=== PATIENT | female | born 1935 | race Caucasian/White ===

== ENCOUNTER 2019-11-01 09:48 | Emergency (ER) | payer OTHER ==
[~2019-11-01] VITALS: Ht 175.3 cm; Wt 57.2 kg
--- NOTE | 2019-11-01 10:00 | NUR ---
BIBRA88 HOME, C/O NAUSEA X 3 DAYS. ZOFRAN ODT GIVEN POLYSOMNOGRAPHY TECH W/ RELIEF. PATIENT A/OX4, BREATHING EVEN AND UNLABORED, NO SOB NOTED, NEEDS ATTENDED.
[2019-11-01] MEDS ORDERED: IV NS 0.9% 500 ML BAG IV ONE (10:30)
[2019-11-01] MEDS ORDERED: ONDANSETRON HCL/PF 4 MG/2 ML VIAL IVP ONE (10:30)
[2019-11-01] MEDS ORDERED: ONDANSETRON HCL/PF 4 MG/2 ML VIAL ONE (10:40)
[2019-11-01 10:49] LABS: BASOPHILS % (AUTO) 0.9 % (0.0-2.0); EOSINOPHILS % (AUTO) 4.4 % (0.0-6.0); HEMATOCRIT 39 % (33-45); HEMOGLOBIN 12.9 g/dL (11.5-14.8); LYMPHOCYTES # (AUTO) 1.2 /CMM (0.8-4.8); LYMPHOCYTES % (AUTO) 23.7 % (20.0-44.0); MEAN CORPUSCULAR HGB CONC 33 g/dl (31.0-36.0); MEAN CORPUSCULAR VOLUME 93 fL (82-100); MONOCYTES # (AUTO) 0.5 /CMM (0.1-1.30); MONOCYTES % (AUTO) 10.3 % (2.0-12.0); NEUTROPHILS # (AUTO) 3.2 /CMM (1.8-8.9); NEUTROPHILS % (AUTO) 60.7 % (43.0-81.0); PLATELET COUNT (AUTO) 179 /CMM (150-450); RED BLOOD CELL COUNT(AUTO) 4.24 MIL/uL (4.0-5.2); WHITE BLOOD COUNT (AUTO) 5.2 K/uL (4.3-11.0)
[2019-11-01 10:56] LABS: CALCIUM, SERUM 8.6 mg/dL (8.5-10.1); CARBON DIOXIDE 30 mmol/L (21-32); CHLORIDE 106 mmol/L (98-107); CREATININE 0.9 mg/dL (0.6-1.3); GLUCOSE 84 mg/dL (74-106); POTASSIUM 3.7 mmol/L (3.5-5.1); SODIUM SERUM 143 mmol/L (136-145); UREA NITROGEN, BLOOD 11 mg/dL (7-18)
[2019-11-01 11:01] LABS: ALANINE AMINOTRANSFERASE 22 U/L (12-78); ALBUMIN 3.6 g/dL (3.4-5.0); ALKALINE PHOSPHATASE 58 U/L (46-116); ASPARTATE AMINOTRANSFERASE 16 U/L (15-37); BILIRUBIN,DIRECT 0.1 mg/dL (0.0-0.2); BILIRUBIN,TOTAL 0.5 mg/dL (0.2-1.0); LIPASE 142 U/L (73-393); TOTAL PROTEIN, SERUM 6.5 g/dL (6.4-8.2)
[2019-11-01 11:38] LABS: APPEARANCE,URINE Clear (CLEAR); BILIRUBIN,URINE Negative (NEGATIVE); BLOOD, URINE Negative Ery/uL (NEGATIVE); COLOR,URINE Yellow (YELLOW); KETONES,URINE Negative (NEGATIVE); LEUKOCYTE ESTERASE ,URINE Negative (NEGATIVE); NITRITE, URINE Negative (NEGATIVE); PROTEIN,URINE Negative (NEGATIVE); UGLUCOSE Negative (NEGATIVE); UROBILINOGEN,URINE 0.2 EU/dL (0.2)
--- NOTE | 2019-11-01 12:18 | NUR ---
Patient a/ox4, breathing even and unlabored, no sob noted, needs attended, kept comfortable. IV removed. Catheter intact and site benign. Pressure and 4x4 applied to site. No bleeding noted.Patient discharged to home in stable condition. Written and verbal after care instructions given. Patient verbalizes understanding of instruction.
[2019-11-01 12:19] VITALS: BP 134/72
== END 2019-11-01 12:20 | disposition home or self-care (01) ==
LOC: ER 09:49
DX: R11.2 Nausea with vomiting, unspecified (principal); H93.13 Tinnitus, bilateral
CPT/HCPCS: 36415; 71045; 80048; 80076; 81001; 83690; 84484; 85025; 93005; 96374; 99285; J2405; J7040; 81000-TC

== ENCOUNTER 2020-04-07 00:30 | Emergency (ER) | payer OTHER ==
[~2020-04-07] VITALS: Ht 177.8 cm; Wt 59.0 kg
--- NOTE | 2020-04-07 00:49 | NUR ---
PATIENT CAME TO THE ER BED 10 FROM HOME BIBRA C/O NAUSEA AND VOMITING. PATIENT STATES THAT SHE FEELS DIZZY. PATIENT IS AAOX4. NO SOB .BREATHING EVENLY AND UNLABORED ON ROOM AIR. CONNECTED TO THE MONITOR.
[2020-04-07] MEDS ORDERED: PROCHLORPERAZINE EDISYLATE 10 MG/2 ML VIAL ONE (00:50)
[2020-04-07] MEDS ORDERED: diphenhydrAMINE HCL 50 MG/ML VIAL ONE (00:50)
--- NOTE | 2020-04-07 00:54 | NUR ---
BLOOD COLLECTED AND SENT TO THE LAB.
[2020-04-07] MEDS ORDERED: IV NS 0.9% 1,000 ML BAG IV ONE (01:00)
[2020-04-07] MEDS ORDERED: PROCHLORPERAZINE EDISYLATE 10 MG/2 ML VIAL IVP ONE (01:00)
[2020-04-07] MEDS ORDERED: diphenhydrAMINE HCL 50 MG/ML VIAL IV ONE (01:00)
[2020-04-07 01:15] LABS: BASOPHILS # (AUTO) 0.3 /CMM (0.0-0.2); BASOPHILS % (AUTO) 4.1 % (0.0-2.0); EOSINOPHILS % (AUTO) 5.7 % (0.0-6.0); HEMATOCRIT 40 % (33-45); HEMOGLOBIN 13.2 g/dL (11.5-14.8); LYMPHOCYTES % (AUTO) 16.2 % (20.0-44.0); MEAN CORPUSCULAR HGB CONC 33 g/dl (31.0-36.0); MEAN CORPUSCULAR VOLUME 90 fL (82-100); MONOCYTES # (AUTO) 0.4 /CMM (0.1-1.30); NEUTROPHILS # (AUTO) 4.2 /CMM (1.8-8.9); PLATELET COUNT (AUTO) 193 /CMM (150-450); RED BLOOD CELL COUNT(AUTO) 4.47 MIL/uL (4.0-5.2); WHITE BLOOD COUNT (AUTO) 6.3 K/uL (4.3-11.0)
[2020-04-07] MEDS ORDERED: METOCLOPRAMIDE HCL 10 MG/2 ML VIAL ONE (01:27)
[2020-04-07] MEDS ORDERED: METOCLOPRAMIDE HCL 10 MG/2 ML VIAL IV ONE (01:30)
[2020-04-07 01:43] LABS: CALCIUM, SERUM 9.4 mg/dL (8.5-10.1); CARBON DIOXIDE 29 mmol/L (21-32); CHLORIDE 101 mmol/L (98-107); CREATININE 1.1 mg/dL (0.6-1.3); GLUCOSE 113 mg/dL (74-106); POTASSIUM 3.6 mmol/L (3.5-5.1); SODIUM SERUM 141 mmol/L (136-145); UREA NITROGEN, BLOOD 22 mg/dL (7-18)
[2020-04-07 01:49] LABS: ALANINE AMINOTRANSFERASE 17 U/L (12-78); ALBUMIN 3.7 g/dL (3.4-5.0); ALKALINE PHOSPHATASE 80 U/L (46-116); ASPARTATE AMINOTRANSFERASE 18 U/L (15-37); BILIRUBIN,DIRECT 0.1 mg/dL (0.0-0.2); BILIRUBIN,TOTAL 0.2 mg/dL (0.2-1.0); LIPASE 185 U/L (73-393); TOTAL PROTEIN, SERUM 6.9 g/dL (6.4-8.2)
--- NOTE | 2020-04-07 01:53 | NUR ---
urine collected and sent to the lab.
[2020-04-07 02:19] LABS: BILIRUBIN,URINE Negative (NEGATIVE); COLOR,URINE YELLOW (YELLOW); LEUKOCYTE ESTERASE ,URINE Trace (NEGATIVE); NITRITE, URINE Negative (NEGATIVE); PROTEIN,URINE Negative (NEGATIVE); UGLUCOSE Negative (NEGATIVE); UROBILINOGEN,URINE 0.2 EU/dL (0.2)
[2020-04-07] MEDS ORDERED: MECLIZINE HCL 25 MG TABLET ONE (02:41)
[2020-04-07 02:54] LABS: BACTERIA,URINE None seen /HPF (None Seen); RBC,URINE 0-2 /HPF (0-2); SQUAMOUS EPITHELIAL CELL,UR Few /HPF (None Seen)
[2020-04-07] MEDS ORDERED: MECLIZINE HCL 25 MG TABLET PO ONE (03:00)
--- NOTE | 2020-04-07 03:29 | NUR ---
PATIENT AMBULATED TO THE RESTOOM WITH ASSISTANCE WITH A STEADY GAIT. PATIENT HAS GOOD LEAD SOFTWARE TESTER STRENGTH AND LEG STRENGTH.
--- NOTE | 2020-04-07 03:30 | NUR ---
PATIENT STATES, " I DON'T THINK I CAN WALK WITHOUT ANY ASSISTANCE, I NEED SOMEONE THERE TO HELP ME."
--- NOTE | 2020-04-07 03:37 | NUR ---
SPOKE WITH XAVIER FROM [facility], JASMIN LUCAS WILL CALL BACK
--- NOTE | 2020-04-07 03:56 | NUR ---
DR. JEREZ SPEAKING WITH DR. AGUILAR ([facility] )
--- NOTE | 2020-04-07 04:46 | NUR ---
TRANSFER INFO: PT WILL BE TRANSFERRED TO [facility] ER PER INSURANCE REQUEST ACCEPTING MD: DR. JAEGER NUMBER FOR REPORT: [phone] S TRANSPORT ETA [phone]
--- NOTE | 2020-04-07 05:19 | NUR ---
REPORT GIVEN TO REID NUNO FROM [facility].
--- NOTE | 2020-04-07 05:51 | NUR ---
patient ambulated to the restroom with a steady gait.
[2020-04-07 06:48] VITALS: BP 140/64
--- NOTE | 2020-04-07 06:52 | NUR ---
REPORT GIVEN TO TRANSPORT TEAM FOR [facility] AND TRANSFERRING RESPONSIBILTIES.
== END 2020-04-07 06:54 | disposition short-term general hospital (02) ==
LOC: ER 00:31
DX: H81.09 Meniere's disease, unspecified ear (principal); R11.2 Nausea with vomiting, unspecified; R26.2 Difficulty in walking, not elsewhere classified; Z20.822 Contact with and (suspected) exposure to COVID-19
CPT/HCPCS: 36415; 80048; 80076; 81001; 83690; 84484; 85025; 87086; 87426; 93005; 96361; 96374; 96375; 99285; C9803; J0780; J1200; J2765; J7030; J8597

== ENCOUNTER 2020-05-29 12:45 | Emergency (ER) | payer OTHER ==
[~2020-05-29] VITALS: Ht 175.3 cm; Wt 60.8 kg
--- NOTE | 2020-05-29 13:00 | NUR ---
FEELING UNSTEADY AND FEELS LIKE HEART IS RACING WHILE AT HOME X 45MINS. PATIENT A/OX4, BREATHING EVEN AND UNLABORED, NO SOB NOTED. NEEDS ATTENDED. PATIENT AMBULATORY WITH STEADY GAIT.
--- NOTE | 2020-05-29 13:14 | NUR ---
Blood specimen collected and taken it to the lab.
[2020-05-29 13:19] LABS: BASOPHILS # (AUTO) 0.1 /CMM (0.0-0.2); BASOPHILS % (AUTO) 1.9 % (0.0-2.0); EOSINOPHILS % (AUTO) 1.9 % (0.0-6.0); HEMATOCRIT 38 % (33-45); HEMOGLOBIN 12.4 g/dL (11.5-14.8); LYMPHOCYTES # (AUTO) 0.9 /CMM (0.8-4.8); MEAN CORPUSCULAR HGB CONC 32 g/dl (31.0-36.0); MEAN CORPUSCULAR VOLUME 91 fL (82-100); MONOCYTES # (AUTO) 0.5 /CMM (0.1-1.30); MONOCYTES % (AUTO) 7.2 % (2.0-12.0); NEUTROPHILS # (AUTO) 5.1 /CMM (1.8-8.9); PLATELET COUNT (AUTO) 185 /CMM (150-450); WHITE BLOOD COUNT (AUTO) 6.7 K/uL (4.3-11.0)
[2020-05-29 13:28] LABS: CALCIUM, SERUM 9.1 mg/dL (8.5-10.1); CARBON DIOXIDE 26 mmol/L (21-32); CHLORIDE 105 mmol/L (98-107); CREATININE 0.9 mg/dL (0.6-1.3); GLUCOSE 103 mg/dL (74-106); SODIUM SERUM 140 mmol/L (136-145); UREA NITROGEN, BLOOD 16 mg/dL (7-18)
[2020-05-29 13:42] LABS: ALANINE AMINOTRANSFERASE 16 U/L (12-78); ALBUMIN 3.3 g/dL (3.4-5.0); ALKALINE PHOSPHATASE 69 U/L (46-116); ASPARTATE AMINOTRANSFERASE 17 U/L (15-37); BILIRUBIN,DIRECT 0.1 mg/dL (0.0-0.2); BILIRUBIN,TOTAL 0.5 mg/dL (0.2-1.0); TOTAL PROTEIN, SERUM 6.5 g/dL (6.4-8.2)
--- NOTE | 2020-05-29 14:03 | NUR ---
PATIENT ACCEPTED AT [facility].
--- NOTE | 2020-05-29 14:06 | NUR ---
PATIENT WENT TO RESTROOM, DID NOT PROVIDE A URINE.
--- NOTE | 2020-05-29 15:48 | NUR ---
[facility] CALLED BACK WITH TRANSFER INFO. PATIENT HAS BEEN ACCEPTED TO [facility]. NUMBER FOR REPORT [phone]. DR. Kevin HARE IS THE ACCEPTING. [facility] WITH [facility] ETA [phone].
[2020-05-29 16:03] LABS: BILIRUBIN,URINE NEGATIVE (NEGATIVE); COLOR,URINE YELLOW (YELLOW); LEUKOCYTE ESTERASE ,URINE SMALL (NEGATIVE); NITRITE, URINE NEGATIVE (NEGATIVE); PH,URINE 6.5 (5.0-8.0); PROTEIN,URINE NEGATIVE (NEGATIVE); UGLUCOSE NEGATIVE (NEGATIVE); UROBILINOGEN,URINE 0.2 EU/dL (0.2)
[2020-05-29 16:11] LABS: BACTERIA,URINE 1+ /HPF (None Seen); SQUAMOUS EPITHELIAL CELL,UR 0-2 /HPF (None Seen)
--- NOTE | 2020-05-29 16:13 | NUR ---
CALLED [facility] FOR REPORT, WAS TOLD TO CALL BACK LATER.
--- NOTE | 2020-05-29 16:31 | NUR ---
REPORT GIVEN TO NIKOLAY NUNO AT [facility].
--- NOTE | 2020-05-29 16:47 | NUR ---
AMBULANCE ETA WILL BE DELAYED 1720.
--- NOTE | 2020-05-29 17:14 | NUR ---
PATIENT RESTING, NO DISTRESS NOTED. NEEDS ATTENDED.
--- NOTE | 2020-05-29 17:24 | NUR ---
REPORT AND PAPERWORKS GIVEN TO [facility] INCLUDING IMAGING COPIES. PATIENT IN STABLE CONDITION, NO DISTRESS NOTED. VSS.
[2020-05-29 17:25] VITALS: BP 148/74
== END 2020-05-29 17:26 | disposition short-term general hospital (02) ==
LOC: ER 12:51
DX: R00.2 Palpitations (principal); R55 Syncope and collapse; R03.0 Elevated blood-pressure reading, without diagnosis of hypertension; I49.3 Ventricular premature depolarization; Z20.822 Contact with and (suspected) exposure to COVID-19
CPT/HCPCS: 36415; 71045; 80048; 80076; 81001; 84484; 85025; 87086; 87426; 93005; 99285; C9803

== ENCOUNTER 2022-10-04 18:17 | Emergency (ER) | payer OTHER ==
[~2022-10-04] VITALS: Ht 177.8 cm; Wt 55.3 kg
[2022-10-04] MEDS ORDERED: LIDOCAINE HCL/MPF 1% 30 ML VIAL IJ ONE (19:45)
[2022-10-04 20:17] VITALS: BP 139/67; TEMP 98.5
[2022-10-04] MEDS ORDERED: TDAP [DIPH/PERTUSSIS/TET] 0.5 ML VIAL IM ONE ×2 (20:29→20:30)
[2022-10-04 20:43] VITALS: O2SAT 98
== END 2022-10-04 20:45 | disposition home or self-care (01) ==
LOC: ER 18:23
DX: S61.012A Laceration without foreign body of left thumb without damage to nail, initial encounter (principal); Z60.2 Problems related to living alone; W26.9XXA Contact with unspecified sharp object(s), initial encounter; Y93.89 Activity, other specified; Y92.89 Other specified places as the place of occurrence of the external cause; Y99.8 Other external cause status
CPT/HCPCS: 12001; 90471; 90715; 99283; A6403; J3490

== ENCOUNTER 2022-10-14 11:52 | Emergency (ER) | payer OTHER ==
[~2022-10-14] VITALS: Ht 175.3 cm; Wt 55.3 kg
[2022-10-14 12:26] VITALS: BP 130/80; TEMP 98.4; O2SAT 100
[2022-10-14] MEDS ORDERED: BACI/NEOM/POLY B OINT PKT 1 UDPKT PACKET TP ONE (12:30)
== END 2022-10-14 12:26 | disposition home or self-care (01) ==
LOC: ER 11:56
DX: Z60.2 Problems related to living alone (principal); S61.012D Laceration without foreign body of left thumb without damage to nail, subsequent encounter; X58.XXXD Exposure to other specified factors, subsequent encounter